=== PATIENT | female | born 1955 | race Caucasian/White ===

== ENCOUNTER 2017-04-25 19:03 | Emergency (ER) | payer MEDICAID ==
[2017-04-25] MEDS ORDERED: Nitroglycerin 2% Oint 1 GM UD Packet ONE (19:19)
[2017-04-25] MEDS ORDERED: Sodium Chloride 0.9% 2.5 ML Syringe FLUSH PRN (19:20)
[2017-04-25] MEDS ORDERED: Sodium Chloride 0.9% 10 ML Syringe FLUSH PRN (19:20)
[2017-04-25] MEDS ORDERED: Ondansetron 4 MG/2 ML SDV IVPUSH ONE (19:20)
[2017-04-25] MEDS ORDERED: Aspirin 81 MG Tab.Chew ONE (19:20)
[2017-04-25] MEDS ORDERED: Aspirin 81 MG Tab.Chew PO ONE (19:20)
[2017-04-25] MEDS ORDERED: Ketorolac 30 MG/ML SDV IVPUSH ONE (19:20)
--- NOTE | 2017-04-25 19:22 | EDM.PDOC ---
ED HPI GENERAL MEDICAL PROBLEM - General Chief Complaint: Chest Pain Stated Complaint: PAIN IN THE LEFT SIDE SHOULDER Time Seen by Provider: 04/25/17 19:13 - History of Present Illness INITIAL COMMENTS - FREE TEXT/NARRATIVE: HISTORY AND PHYSICAL: History of present illness: Patient 61-year-old female with history of hypertension and diabetes who presents with a concern of left upper back pain with radiation down her left arm and shortness of breath she's had this off and on 1 date the seemingly worse with movement she's had no palpitations diaphoresis nausea vomiting she reports no known cardiac disease she does have a strong family history Review of systems: As per history of present illness and below otherwise all systems reviewed and negative. Past medical history: As per history of present illness and as reviewed below otherwise noncontributory. Surgical history: As per history of present illness and as reviewed below otherwise noncontributory. Social history: No reported history of drug or alcohol abuse. Family history: As per history of present illness and as reviewed below otherwise noncontributory. Physical exam: HEENT: Atraumatic, normocephalic, pupils reactive, negative for conjunctival pallor or scleral icterus, mucous membranes moist, throat clear, neck supple, nontender, trachea midline. Lungs: Clear to auscultation, breath sounds equal bilaterally, pain does seem to be reproducible with movement of her left arm Heart: S1S2, regular, negative for clicks, rubs, or JVD. Abdomen: Soft, nondistended, nontender. Negative for masses or hepatosplenomegaly. Negative for costovertebral tenderness. Pelvis: Stable nontender. Genitourinary: Deferred. Rectal: Deferred. Extremities: Atraumatic, negative for cords or calf pain. Neurovascular unremarkable. Neuro: Awake, alert, oriented. Cranial nerves II through XII unremarkable. Cerebellum unremarkable. Motor and sensory unremarkable throughout. Exam nonfocal. Diagnostics: CBC CMP troponin PT/INR d-dimer chest x-ray EKG Therapeutics: IV O2 monitor aspirin 324 mg by mouth Toradol 30 mg IV Zofran 4 mg IV Impression: #1 upper back/arm pain #2 history diabetes #3 history hypertension Definitive disposition and diagnosis as appropriate pending reevaluation and review of above. - Related Data Allergies Allergy/AdvReac Type Severity Reaction Status Date / Time codeine Allergy Anaphylactic Verified 04/25/17 19:10 Shock Home Meds: Home Meds Fluticasone Propionate [Flonase] 0 gm NASBOTH DAILY 04/25/17 [History] Levothyroxine [Synthroid] 0.1 mg PO ACBREAKFAST 04/25/17 [History] Rosuvastatin [Crestor] 20 mg PO DAILY 04/25/17 [History] glyBURIDE [Glyburide] 5 mg PO DAILY 04/25/17 [History] metFORMIN [Glucophage] 1,000 mg PO BIDMEALS 04/25/17 [History] ED ROS GENERAL - Review of Systems Review Of Systems: ROS reveals no pertinent complaints other than HPI. ED EXAM, GENERAL - Physical Exam Exam: See Below (See dictation) Course - Vital Signs Text/Narrative:: I discussed with patient the unclear etiology at this time and recommend admission for observation patient understands risks and benefit and declines she does request something stronger for pain this was also explained to her son who reiterated to the patient my concerns. Patient called the private doctor Thursday she'll be prescribed Ultram to take as prescribed she to return as needed as discussed Last Recorded V/S: Last Vital Signs Temp 36.6 C 04/25/17 19:51 Pulse 76 04/25/17 20:48 Resp 16 04/25/17 20:48 BP 137/73 04/25/17 20:48 Pulse Ox 95 04/25/17 20:48 - Orders/Labs/Meds Orders: Active Orders 24 hr Category Date Time Status Cardiac Monitoring [RC] . DIRECTED Care 04/25/17 19:19 Active EKG Documentation Completion [RC] STAT Care 04/25/17 19:19 Active Oxygen Therapy, ED [RC] ASDIRECTED Care 04/25/17 19:19 Active Pulse Oximetry [RC] ASDIRECTED Care 04/25/17 19:19 Active Chest 1V Frontal [CR] Stat Exams 04/25/17 19:19 Taken Sodium Chloride 0.9% [Normal Saline] 1,000 ml Med 04/25/17 19:30 Active IV STAT Sodium Chloride 0.9% [Saline Flush] Med 04/25/17 19:20 Active 10 ml FLUSH ASDIRECTED PRN Sodium Chloride 0.9% [Saline Flush] Med 04/25/17 19:20 Active 2.5 ml FLUSH ASDIRECTED PRN Saline Lock Insert [OM.PC] Stat Oth 04/25/17 19:19 Ordered Medication Orders Sodium Chloride (Normal Saline) 1,000 mls @ 125 mls/hr IV STAT JUAN MANUEL Last Admin: 04/25/17 19:28 Dose: 125 mls/hr Sodium Chloride (Saline Flush) 10 ml FLUSH ASDIRECTED PRN PRN Reason: Keep Vein Open Sodium Chloride (Saline Flush) 2.5 ml FLUSH ASDIRECTED PRN PRN Reason: Keep Vein Open Labs: Laboratory Tests 04/25/17 04/25/17 04/25/17 Range/Units 19:15 19:15 19:15 WBC 9.17 (4.0-11.0) K/uL RBC 4.20 L (4.30-5.90) M/uL Hgb 11.8 L (12.0-16.0) g/dL Hct 35.3 L (36.0-46.0) % MCV 84.0 (80.0-98.0) fL MCH 28.1 (27.0-32.0) pg MCHC 33.4 (31.0-37.0) g/dL RDW Std Deviation 40.3 (28.0-62.0) fl RDW Coeff of Lobo 14 (11.0-15.0) % Plt Count 240 (150-400) K/uL MPV 12.20 H (7.40-12.00) fL Neut % (Auto) 61.7 (48.0-80.0) % Lymph % (Auto) 30.9 (16.0-40.0) % Cavalier % (Auto) 5.6 (0.0-15.0) % Eos % (Auto) 1.5 (0.0-7.0) % Baso % (Auto) 0.3 (0.0-1.5) % Neut # (Auto) 5.7 (1.4-5.7) K/uL Lymph # (Auto) 2.8 H (0.6-2.4) K/uL Cavalier # (Auto) 0.5 (0.0-0.8) K/uL Eos # (Auto) 0.1 (0.0-0.7) K/uL Baso # (Auto) 0.0 (0.0-0.1) K/uL Nucleated RBC % 0.0 /100WBC Nucleated RBCs # 0 K/uL INR 1.00 (0.86-1.11) D-Dimer, Quantitative (0.0-0.52) mg/LFEU Sodium 134 L (136-146) mmol/L Potassium 3.6 (3.5-5.1) mmol/L Chloride 101 (98-110) mmol/L Carbon Dioxide 21 (21-31) mmol/L BUN 17 (6.0-23.0) mg/dL Creatinine 0.9 (0.6-1.5) mg/dL Est Cr Clr Drug Dosing TNP Estimated GFR (MDRD) > 60.0 ml/min Glucose 152 H (60-110) mg/dL Calcium 8.7 L (8.8-10.8) mg/dL Total Bilirubin 0.3 (0.1-1.5) mg/dL AST 48 H (5-40) IU/L ALT 82 H (8-54) IU/L Alkaline Phosphatase 101 (40-150) Troponin I (0.0-0.29) NG/ML B-Natriuretic Peptide (<100) PG/ML Total Protein 7.5 (6.0-8.0) g/dL Albumin 3.8 (3.4-4.8) g/dL Globulin 3.7 H (2.0-3.5) g/dL Albumin/Globulin Ratio 1.0 L (1.3-2.8) 04/25/17 04/25/17 04/25/17 Range/Units 19:15 19:15 19:15 WBC (4.0-11.0) K/uL RBC (4.30-5.90) M/uL Hgb (12.0-16.0) g/dL Hct (36.0-46.0) % MCV (80.0-98.0) fL MCH (27.0-32.0) pg MCHC (31.0-37.0) g/dL RDW Std Deviation (28.0-62.0) fl RDW Coeff of Lobo (11.0-15.0) % Plt Count (150-400) K/uL MPV (7.40-12.00) fL Neut % (Auto) (48.0-80.0) % Lymph % (Auto) (16.0-40.0) % Cavalier % (Auto) (0.0-15.0) % Eos % (Auto) (0.0-7.0) % Baso % (Auto) (0.0-1.5) % Neut # (Auto) (1.4-5.7) K/uL Lymph # (Auto) (0.6-2.4) K/uL Cavalier # (Auto) (0.0-0.8) K/uL Eos # (Auto) (0.0-0.7) K/uL Baso # (Auto) (0.0-0.1) K/uL Nucleated RBC % /100WBC Nucleated RBCs # K/uL INR (0.86-1.11) D-Dimer, Quantitative 0.52 (0.0-0.52) mg/LFEU Sodium (136-146) mmol/L Potassium (3.5-5.1) mmol/L Chloride (98-110) mmol/L Carbon Dioxide (21-31) mmol/L BUN (6.0-23.0) mg/dL Creatinine (0.6-1.5) mg/dL Est Cr Clr Drug Dosing Estimated GFR (MDRD) ml/min Glucose (60-110) mg/dL Calcium (8.8-10.8) mg/dL Total Bilirubin (0.1-1.5) mg/dL AST (5-40) IU/L ALT (8-54) IU/L Alkaline Phosphatase (40-150) Troponin I < 0.10 (0.0-0.29) NG/ML B-Natriuretic Peptide 65 (<100) PG/ML Total Protein (6.0-8.0) g/dL Albumin (3.4-4.8) g/dL Globulin (2.0-3.5) g/dL Albumin/Globulin Ratio (1.3-2.8) Meds: Medications Generic Name Dose Route Start Last Admin Trade Name Freq PRN Reason Stop Dose Admin Sodium Chloride 1,000 mls @ 125 mls/hr 04/25/17 19:30 04/25/17 19:28 Normal Saline IV 125 mls/hr STAT JUAN MANUEL Administration Sodium Chloride 10 ml 04/25/17 19:20 Saline Flush FLUSH ASDIRECTED PRN Keep Vein Open Sodium Chloride 2.5 ml 04/25/17 19:20 Saline Flush FLUSH ASDIRECTED PRN Keep Vein Open Discontinued Medications Generic Name Dose Route Start Last Admin Trade Name Agustin PRN Reason Stop Dose Admin Aspirin 324 mg 04/25/17 19:20 04/25/17 19:22 Aspirin PO 04/25/17 19:21 324 mg ONETIME ONE Administration Aspirin Confirm 04/25/17 19:20 04/25/17 20:42 Aspirin Administered 04/25/17 19:21 Not Given Dose 324 mg .ROUTE .STK-MED ONE Ketorolac Tromethamine 30 mg 04/25/17 19:20 04/25/17 19:28 Toradol IVPUSH 04/25/17 19:21 30 mg ONETIME ONE Administration Nitroglycerin Confirm 04/25/17 19:19 04/25/17 19:28 Nitro-Bid 2% Administered 04/25/17 19:20 1 gm Dose Administration 1 gm .ROUTE .STK-MED ONE Nitroglycerin 1 gm 04/25/17 19:24 04/25/17 20:42 Nitro-Bid 2% TOP 04/25/17 19:25 Not Given ONETIME ONE Ondansetron HCl 4 mg 04/25/17 19:20 04/25/17 19:31 Zofran IVPUSH 04/25/17 19:21 4 mg ONETIME ONE Administration Departure - Departure Time of Disposition: 21:07 Disposition: Home, Self-Care 01 Condition: Good Clinical Impression: Upper back pain, Left arm pain, History of type 2 diabetes mellitus, History of hypertension - Discharge Information Forms: ED Department Discharge Additional Instructions: The following information is given to patients seen in the emergency department who are being discharged to home. This information is to outline your options for follow-up care. We provide all patients seen in our emergency department with a follow-up referral. The need for follow-up, as well as the timing and circumstances, are variable depending upon the specifics of your emergency department visit. If you don't have a primary care physician on staff, we will provide you with a referral. We always advise you to contact your personal physician following an emergency department visit to inform them of the circumstance of the visit and for follow-up with them and/or the need for any referrals to a consulting specialist. The emergency department will also refer you to a specialist when appropriate. This referral assures that you have the opportunity for followup care with a specialist. All of these measure are taken in an effort to provide you with optimal care, which includes your followup. Under all circumstances we always encourage you to contact your private physician who remains a resource for coordinating your care. When calling for followup care, please make the office aware that this follow-up is from your recent emergency room visit. If for any reason you are refused follow-up, please contact the [facility] emergency department at and asked to speak to the emergency department charge nurse. Ultram as prescribed continue current medications follow-up primary medical doctor Thursday as discussed return as needed as discussed - My Orders Last 24 Hours: My Active Orders 04/25/17 19:19 Cardiac Monitoring [RC] . DIRECTED EKG Documentation Completion [RC] STAT Oxygen Therapy, ED [RC] ASDIRECTED Pulse Oximetry [RC] ASDIRECTED Chest 1V Frontal [CR] Stat Saline Lock Insert [OM.PC] Stat 04/25/17 19:20 Sodium Chloride 0.9% [Saline Flush] 10 ml FLUSH ASDIRECTED PRN Sodium Chloride 0.9% [Saline Flush] 2.5 ml FLUSH ASDIRECTED PRN 04/25/17 19:30 Sodium Chloride 0.9% [Normal Saline] 1,000 ml IV STAT - Assessment/Plan Last 24 Hours: My Active Orders 04/25/17 19:19 Cardiac Monitoring [RC] . DIRECTED EKG Documentation Completion [RC] STAT Oxygen Therapy, ED [RC] ASDIRECTED Pulse Oximetry [RC] ASDIRECTED Chest 1V Frontal [CR] Stat Saline Lock Insert [OM.PC] Stat 04/25/17 19:20 Sodium Chloride 0.9% [Saline Flush] 10 ml FLUSH ASDIRECTED PRN Sodium Chloride 0.9% [Saline Flush] 2.5 ml FLUSH ASDIRECTED PRN 04/25/17 19:30 Sodium Chloride 0.9% [Normal Saline] 1,000 ml IV STAT
[2017-04-25] MEDS ORDERED: Nitroglycerin 2% Oint 1 GM UD Packet TOP ONE (19:24)
[2017-04-25] MEDS ORDERED: Sodium Chloride 0.9% 1,000 ML IV SCH (19:30)
[2017-04-25 19:54] LABS: CHLORIDE,CL 101 mmol/L (98-110); SODIUM,NA 134 mmol/L (136-146)
[2017-04-25 21:35] VITALS: BP 129/71
--- NOTE | 2017-04-27 11:36 | CR ---
EXAM DATE: 04/25/17 PATIENT'S AGE: 61 Patient: DARÍO BENNETT Facility: [place], [place] Site . Site : [id number] Study: XRay Chest [id number]/24/2017 7:44:29 PM Ordering Physician: Fortunato Lindsay Final Report: INDICATION: Chest pain, shortness of breath. TECHNIQUE: Chest radiograph 1 view COMPARISON: None FINDINGS: Cardiovascular and mediastinum: The heart silhouette is normal in size and morphology. The mediastinum is normal in appearance. Lungs and pleural spaces: Both lungs are unremarkable in appearance. No sign of pleural effusion seen. No pneumothorax is identified. Bones and soft tissues: No significant findings. IMPRESSION: 1. No acute cardiopulmonary disease is seen. Dictated by Jorge Luis Medina MD @ 04/25/2017 7:51:15 PM Dictated by: Jorge Luis Medina MD @ 04/25/2017 19:51:20 (Electronic Signature) Report Signed by Proxy. [facility] SYSTEMChristiana
== END 2017-04-25 21:17 | disposition home or self-care (01) ==
LOC: MW.ED 19:03
DX: M54.6 Pain in thoracic spine (principal); M79.602 Pain in left arm; I10 Essential (primary) hypertension; E11.9 Type 2 diabetes mellitus without complications; Z88.5 Allergy status to narcotic agent; Z79.84 Long term (current) use of oral hypoglycemic drugs; Z79.899 Other long term (current) drug therapy
CPT/HCPCS: 71010; 80053; 83880; 84484; 85025; 85379; 85610; 93005; 96361; 96374; 96375; 99285; A9270; J1885; J2405; J7040; 99284

== ENCOUNTER 2017-04-26 13:23 | Emergency (ER) | payer MEDICAID ==
--- NOTE | 2017-04-26 14:09 | EDM.PDOC ---
ED HPI GENERAL MEDICAL PROBLEM - General Chief Complaint: Upper Extremity Injury/Pain Stated Complaint: PAIN LT SHOULDER/DIZZY VOMITING Time Seen by Provider: 04/26/17 14:00 Source of Information: Reports: Patient History Limitations: Reports: No Limitations - History of Present Illness INITIAL COMMENTS - FREE TEXT/NARRATIVE: HISTORY AND PHYSICAL: History of present illness: [Patient comes the emergency room with complaints of vomiting. States that this has occurred twice, once last night and once this morning both times after taking a dose of tramadol. She was evaluated first in the ER yesterday for left shoulder pain and was prescribed tramadol. She reports a mild improvement in her shoulder discomfort and is requesting a different prescription. Pain is still localized just in her left shoulder and does not radiate anywhere. No fever chills. No abdominal pain. No other concerns or complaints. Patient speaks Romansh and granddaughter acts as back tender pulp drier.] Review of systems: As per history of present illness and below otherwise all systems reviewed and negative. Past medical history: As per history of present illness and as reviewed below otherwise noncontributory. Surgical history: As per history of present illness and as reviewed below otherwise noncontributory. Social history: No reported history of drug or alcohol abuse. Family history: As per history of present illness and as reviewed below otherwise noncontributory. Physical exam: HEENT: Atraumatic, normocephalic. Lungs: Clear to auscultation, breath sounds equal bilaterally. Heart: S1S2, regular rate and rhythm. Extremities: Tenderness over L posterior shoulder, and is reproducible. Neurovascular unremarkable. Neuro: Awake, alert, oriented. Motor and sensory unremarkable throughout. Exam nonfocal. Diagnostics: [EKG] Therapeutics: [Zofran 4mg po] Impression: [Nausea and vomiting L shoulder pain] Plan: [EKG shows no changes from previous according to Dr. Bucio who reviewed yesterday and today's EKGs. Nausea is resolved with Zofran. Instructed patient to stop tramadol, take Tylenol or ibuprofen as needed for shoulder discomfort and follow-up with PCP. Family is present at bedside and agrees with plan.] Definitive disposition and diagnosis as appropriate pending reevaluation and review of above. left shoulder/upper back Pain Score (Numeric/FACES): 3 - Related Data Allergies Allergy/AdvReac Type Severity Reaction Status Date / Time codeine Allergy Anaphylactic Verified 04/26/17 13:30 Shock Home Meds: Home Meds Fluticasone Propionate [Flonase] 0 gm NASBOTH DAILY 04/25/17 [History] Levothyroxine [Synthroid] 0.1 mg PO ACBREAKFAST 04/25/17 [History] Rosuvastatin [Crestor] 20 mg PO DAILY 04/25/17 [History] glyBURIDE [Glyburide] 5 mg PO DAILY 04/25/17 [History] metFORMIN [Glucophage] 1,000 mg PO BIDMEALS 04/25/17 [History] Hydrochlorothiazide/Lisinopril [Lisinopril-HCTZ 20-25 MG] 1 tab PO DAILY [History] Past Medical History HEENT History: Reports: None Cardiovascular History: Reports: Hypertension Respiratory History: Reports: None Gastrointestinal History: Reports: None Genitourinary History: Reports: None [employer] History: Reports: Musculoskeletal History: Reports: None Neurological History: Reports: None Psychiatric History: Reports: None Endocrine/Metabolic History: Reports: Diabetes, Type II, Hypothyroidism Hematologic History: Reports: None Oncologic (Cancer) History: Reports: None Dermatologic History: Reports: None - Infectious Disease History Infectious Disease History: Reports: None - Past Surgical History Head Surgeries/Procedures: Reports: None Social & Family History - Family History Family Medical History: Noncontributory - Tobacco Use Smoking Status *Q: Never Smoker - Caffeine Use Caffeine Use: Reports: Coffee - Recreational Drug Use Recreational Drug Use: No Review of Systems - Review of Systems Review Of Systems: ROS reveals no pertinent complaints other than HPI. ED EXAM, GENERAL - Physical Exam Exam: See Below Course - Vital Signs Last Recorded V/S: Last Vital Signs Temp 97 F 04/26/17 13:32 Pulse 75 04/26/17 16:20 Resp 18 04/26/17 16:20 BP 121/58 L 04/26/17 16:20 Pulse Ox 95 04/26/17 16:20 - Orders/Labs/Meds Orders: Active Orders 24 hr Category Date Time Status EKG Documentation Completion [RC] STAT Care 04/26/17 14:29 Active Meds: Medications Discontinued Medications Generic Name Dose Route Start Last Admin Trade Name Freq PRN Reason Stop Dose Admin Ondansetron HCl 4 mg 04/26/17 14:29 04/26/17 14:33 Zofran Odt PO 04/26/17 14:30 4 mg ONETIME ONE Administration Departure - Departure Time of Disposition: 16:00 Disposition: Home, Self-Care 01 Condition: Good Clinical Impression: Nausea - Discharge Information Instructions: Nausea, Adult Referrals: PCP,None [Primary Care Provider] - Forms: ED Department Discharge Additional Instructions: The following information is given to patients seen in the emergency department who are being discharged to home. This information is to outline your options for follow-up care. We provide all patients seen in our emergency department with a follow-up referral. The need for follow-up, as well as the timing and circumstances, are variable depending upon the specifics of your emergency department visit. If you don't have a primary care physician on staff, we will provide you with a referral. We always advise you to contact your personal physician following an emergency department visit to inform them of the circumstance of the visit and for follow-up with them and/or the need for any referrals to a consulting specialist. The emergency department will also refer you to a specialist when appropriate. This referral assures that you have the opportunity for follow-up care with a specialist. All of these measure are taken in an effort to provide you with optimal care, which includes your follow-up. Under all circumstances we always encourage you to contact your private physician who remains a resource for coordinating your care. When calling for follow-up care, please make the office aware that this follow-up is from your recent emergency room visit. If for any reason you are refused follow-up, please contact the [facility] emergency department at and asked to speak to the emergency department charge nurse. [facility] [address] [place] [id number] Follow-up with your primary care provider at the clinic listed above in 24-48 hours. Take Tylenol and ibuprofen as needed for discomfort. Stop tramadol. Return to ER as needed as discussed. - My Orders Last 24 Hours: My Active Orders 04/26/17 14:29 EKG Documentation Completion [RC] STAT - Assessment/Plan Last 24 Hours: My Active Orders 04/26/17 14:29 EKG Documentation Completion [RC] STAT
[2017-04-26] MEDS ORDERED: Ondansetron 4 MG Tab.DIS PO ONE (14:29)
[2017-04-26 16:21] VITALS: BP 121/58
== END 2017-04-26 16:15 | disposition home or self-care (01) ==
LOC: MW.ED 13:23
DX: M25.512 Pain in left shoulder (principal); R11.2 Nausea with vomiting, unspecified; I10 Essential (primary) hypertension; E11.9 Type 2 diabetes mellitus without complications; E03.9 Hypothyroidism, unspecified; Z88.5 Allergy status to narcotic agent; Z79.84 Long term (current) use of oral hypoglycemic drugs; Z79.899 Other long term (current) drug therapy
CPT/HCPCS: 93005; 99283; A9270

== ENCOUNTER 2017-05-14 08:47 | Emergency (ER) | payer MEDICAID ==
[2017-05-14] MEDS ORDERED: diphenhydrAMINE 50 MG Cap PO ONE (09:16)
[2017-05-14] MEDS ORDERED: Acetaminophen 325 MG Tab PO ONE (09:16)
--- NOTE | 2017-05-14 09:21 | EDM.PDOC ---
ED HPI GENERAL MEDICAL PROBLEM - General Chief Complaint: Cardiovascular Problem Stated Complaint: BLOOD PRESSURE Time Seen by Provider: 05/14/17 09:00 - History of Present Illness INITIAL COMMENTS - FREE TEXT/NARRATIVE: HISTORY AND PHYSICAL: History of present illness: The patient is a 61-year-old female with a history of hypertension type 2 diabetes hypercholesterolemia hypothyroidism who follows at [facility] with and last saw her on May 09 for some sciatic pain for which she was prescribed diclofenac and Flexeril; the patient presents today complaining of feeling like her blood pressure is elevated and a temporal headache as well as overall feeling not quite herself after taking a pain pill she got in [place]. According to the patient and the son at bedside the patient felt that the medication that she was given last week was not working for her sciatica so she took a pain pill that she bought in [place] one month ago that is some type of pain pill but they are not sure what it is. After taking the pain pill she started feeling like her blood pressure was elevated she had the temporal headache and just felt unlike herself. She was not dizzy or lightheaded had no nausea or vomiting no chest pain but did feel short of breath. Currently in the ED the patient says that she has no symptoms except the temporal headache which is dull. Patient denies any leg edema or leg pain and the sciatic pain that she has on the right side is not new different or changed. She has not had any recent changes in her medications. The patient seems a little concerned that the medication that she took from [place] may have caused her to have a reaction. Review of systems: As per history of present illness and below otherwise all systems reviewed and negative. Past medical history: As per history of present illness and as reviewed below otherwise noncontributory. Surgical history: As per history of present illness and as reviewed below otherwise noncontributory. Social history: No reported history of drug or alcohol abuse. Family history: As per history of present illness and as reviewed below otherwise noncontributory. Physical exam: General: Well-developed well-nourished female who is nontoxic and speaking clearly and easily in the ED. Vital signs are note by me. HEENT: Atraumatic, normocephalic, pupils reactive, negative for conjunctival pallor or scleral icterus, mucous membranes moist, throat clear, neck supple, nontender, trachea midline.There is no facial swelling or discrete sinus or temporal artery tenderness. There is no cervical adenopathy or nuchal rigidity Lungs: Clear to auscultation, breath sounds equal bilaterally, chest nontender. Heart: S1S2, regular rhythm and slightly tachycardic rate on my evaluation, 100 Abdomen: Soft, nondistended, nontender. NABS Genitourinary: Deferred. Rectal: Deferred. Extremities: Atraumatic, negative for cords or calf pain. Neurovascular unremarkable.No pedal edema or leg asymmetry Neuro: Awake, alert, oriented. Cranial nerves II through XII unremarkable. Cerebellum unremarkable. Motor and sensory unremarkable throughout. Exam nonfocal. Diagnostics: Accu-Chek Therapeutics: Tylenol Benadryl I discussed with the patient and the son that if she is currently only having symptoms of a dull headache I am not sure that testing would yield anything of significance that I could treat. Her blood pressure of 179/85 is noted by me and I discussed with them that I would not acutely or emergently change that I recommended close follow-up with primary care physician at [facility] and to refrain from using this medication for pain that she got from [place]. I discussed reasons to return to the ED. Impression: Slightly elevated blood pressure with history of hypertension stable rule out drug reaction Definitive disposition and diagnosis as appropriate pending reevaluation and review of above. head Pain Score (Numeric/FACES): 5 - Related Data Allergies Allergy/AdvReac Type Severity Reaction Status Date / Time codeine Allergy Anaphylactic Verified 05/14/17 08:57 Shock Home Meds: Home Meds Cyclobenzaprine [Flexeril] 10 mg PO TID PRN 05/14/17 [History] Diclofenac Potassium [Zipsor] 25 mg PO TID PRN 05/14/17 [History] Levothyroxine [Synthroid] 100 mcg PO ACBREAKFAST 05/14/17 [History] Lisinopril/Hydrochlorothiazide [Lisinopril-Hctz 20-25 mg Tab] 1 each PO DAILY [History] glyBURIDE [Glyburide] 5 mg PO DAILY 05/14/17 [History] metFORMIN HCl [Metformin HCl] 1,000 mg PO DAILY 05/14/17 [History] Past Medical History HEENT History: Reports: None Cardiovascular History: Reports: Hypertension Respiratory History: Reports: None Gastrointestinal History: Reports: None Genitourinary History: Reports: None [employer]PERATOR History: Reports: Musculoskeletal History: Reports: None Neurological History: Reports: None Psychiatric History: Reports: None Endocrine/Metabolic History: Reports: Diabetes, Type II, Hypothyroidism Hematologic History: Reports: None Oncologic (Cancer) History: Reports: None Dermatologic History: Reports: None - Infectious Disease History Infectious Disease History: Reports: None - Past Surgical History Head Surgeries/Procedures: Reports: None Social & Family History - Family History Family Medical History: Noncontributory - Tobacco Use Smoking Status *Q: Never Smoker - Caffeine Use Caffeine Use: Reports: Coffee - Recreational Drug Use Recreational Drug Use: Yes ED ROS GENERAL - Review of Systems Review Of Systems: ROS reveals no pertinent complaints other than HPI. ED EXAM, GENERAL - Physical Exam Exam: See Below (See dictation) Course - Vital Signs Last Recorded V/S: Last Vital Signs Temp 36.4 C 05/14/17 08:57 Pulse 108 H 05/14/17 08:57 Resp 18 05/14/17 08:57 BP 179/85 H 05/14/17 08:57 Pulse Ox 97 05/14/17 08:57 - Orders/Labs/Meds Orders: Active Orders 24 hr Category Date Time Status Acetaminophen [Tylenol] Med 05/14/17 09:16 Once 650 mg PO NOW ONE diphenhydrAMINE [Benadryl] Med 05/14/17 09:16 Once 50 mg PO ONETIME ONE Departure - Departure Time of Disposition: 09:21 Disposition: Home, Self-Care 01 Condition: Good Clinical Impression: Elevated blood pressure reading Drug reaction Qualifiers: Encounter type: initial encounter Qualified Code(s): T88.7XXA - Unspecified adverse effect of drug or medicament, initial encounter Forms: ED Department Discharge Additional Instructions: The following information is given to patients seen in the emergency department who are being discharged to home. This information is to outline your options for follow-up care. We provide all patients seen in our emergency department with a follow-up referral. The need for follow-up, as well as the timing and circumstances, are variable depending upon the specifics of your emergency department visit. If you don't have a primary care physician on staff, we will provide you with a referral. We always advise you to contact your personal physician following an emergency department visit to inform them of the circumstance of the visit and for follow-up with them and/or the need for any referrals to a consulting specialist. The emergency department will also refer you to a specialist when appropriate. This referral assures that you have the opportunity for followup care with a specialist. All of these measure are taken in an effort to provide you with optimal care, which includes your followup. Under all circumstances we always encourage you to contact your private physician who remains a resource for coordinating your care. When calling for followup care, please make the office aware that this follow-up is from your recent emergency room visit. If for any reason you are refused follow-up, please contact the [facility] emergency department at and ask to speak to the emergency department charge nurse. [address] [place] [address] Please refrain from using the medications you brought in [place] and please call and follow-up with your provider at [facility]. Use [id number] Tylenol or ibuprofen for headache and return to ER as needed and as discussed - My Orders Last 24 Hours: My Active Orders 05/14/17 09:16 Acetaminophen [Tylenol] 650 mg PO NOW ONE diphenhydrAMINE [Benadryl] 50 mg PO ONETIME ONE - Assessment/Plan Last 24 Hours: My Active Orders 05/14/17 09:16 Acetaminophen [Tylenol] 650 mg PO NOW ONE diphenhydrAMINE [Benadryl] 50 mg PO ONETIME ONE
[2017-05-14 09:44] VITALS: BP 161/75
== END 2017-05-14 09:35 | disposition home or self-care (01) ==
LOC: MW.ED 08:47
DX: I10 Essential (primary) hypertension (principal); E11.9 Type 2 diabetes mellitus without complications; E78.00 Pure hypercholesterolemia, unspecified; E03.9 Hypothyroidism, unspecified; Z79.84 Long term (current) use of oral hypoglycemic drugs; Z88.5 Allergy status to narcotic agent; Z79.899 Other long term (current) drug therapy
CPT/HCPCS: 82962; 99283; A9270

== ENCOUNTER 2017-12-19 20:26 | Emergency (ER) | payer MEDICAID ==
--- NOTE | 2017-12-19 20:47 | EDM.PDOC ---
ED HPI GENERAL MEDICAL PROBLEM - General Stated Complaint: WEAK/EAR PAIN/TROUBLE BREATHING/CHILLS Time Seen by Provider: 12/19/17 20:44 - History of Present Illness INITIAL COMMENTS - FREE TEXT/NARRATIVE: HISTORY AND PHYSICAL: History of present illness: Patient 62-year-old female presents with a concern of fever chills body aches 1 day after admit exposed to multiple family members diagnosed with influenza. No vomiting diarrhea or other complaints. Review of systems: As per history of present illness and below otherwise all systems reviewed and negative. Past medical history: As per history of present illness and as reviewed below otherwise noncontributory. Surgical history: As per history of present illness and as reviewed below otherwise noncontributory. Social history: No reported history of drug or alcohol abuse. Family history: As per history of present illness and as reviewed below otherwise noncontributory. Physical exam: HEENT: Atraumatic, normocephalic, pupils reactive, negative for conjunctival pallor or scleral icterus, mucous membranes moist, throat clear, neck supple, nontender, trachea midline. Lungs: Clear to auscultation, breath sounds equal bilaterally, chest nontender. Heart: S1S2, regular, negative for clicks, rubs, or JVD. Abdomen: Soft, nondistended, nontender. Negative for masses or hepatosplenomegaly. Negative for costovertebral tenderness. Pelvis: Stable nontender. Genitourinary: Deferred. Rectal: Deferred. Extremities: Atraumatic, negative for cords or calf pain. Neurovascular unremarkable. Neuro: Awake, alert, oriented. Cranial nerves II through XII unremarkable. Cerebellum unremarkable. Motor and sensory unremarkable throughout. Exam nonfocal. Diagnostics: Deferred Therapeutics: None Impression: #1 viral syndrome status post influenza exposure Definitive disposition and diagnosis as appropriate pending reevaluation and review of above. - Related Data Allergies Allergy/AdvReac Type Severity Reaction Status Date / Time codeine Allergy Anaphylactic Verified 05/14/17 08:57 Shock Home Meds: Home Meds Cyclobenzaprine [Flexeril] 10 mg PO TID PRN 05/14/17 [History] Diclofenac Potassium [Zipsor] 25 mg PO TID PRN 05/14/17 [History] Levothyroxine [Synthroid] 100 mcg PO ACBREAKFAST 05/14/17 [History] Lisinopril/Hydrochlorothiazide [Lisinopril-Hctz 20-25 mg Tab] 1 each PO DAILY [History] glyBURIDE [Glyburide] 5 mg PO DAILY 05/14/17 [History] metFORMIN HCl [Metformin HCl] 1,000 mg PO DAILY 05/14/17 [History] Past Medical History HEENT History: Reports: None Cardiovascular History: Reports: Hypertension Respiratory History: Reports: None Gastrointestinal History: Reports: None Genitourinary History: Reports: None [employer]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: Musculoskeletal History: Reports: None Neurological History: Reports: None Psychiatric History: Reports: None Endocrine/Metabolic History: Reports: Diabetes, Type II, Hypothyroidism Hematologic History: Reports: None Oncologic (Cancer) History: Reports: None Dermatologic History: Reports: None - Infectious Disease History Infectious Disease History: Reports: None - Past Surgical History Head Surgeries/Procedures: Reports: None Social & Family History - Family History Family Medical History: Noncontributory - Tobacco Use Smoking Status *Q: Never Smoker - Caffeine Use Caffeine Use: Reports: Coffee - Recreational Drug Use Recreational Drug Use: Yes ED ROS GENERAL - Review of Systems Review Of Systems: ROS reveals no pertinent complaints other than HPI. ED EXAM, GENERAL - Physical Exam Exam: See Below (The dictation) Course - Vital Signs Text/Narrative:: Discussed with patient and daughter diagnostic testing at this time they defer prefer empiric treatment in light of clinical statement and exposure. Departure - Departure Time of Disposition: 20:46 Disposition: Home, Self-Care 01 Condition: Good Clinical Impression: Viral syndrome, Exposure to influenza - Discharge Information Referrals: PCP,None [Primary Care Provider] - Additional Instructions: The following information is given to patients seen in the emergency department who are being discharged to home. This information is to outline your options for follow-up care. We provide all patients seen in our emergency department with a follow-up referral. The need for follow-up, as well as the timing and circumstances, are variable depending upon the specifics of your emergency department visit. If you don't have a primary care physician on staff, we will provide you with a referral. We always advise you to contact your personal physician following an emergency department visit to inform them of the circumstance of the visit and for follow-up with them and/or the need for any referrals to a consulting specialist. The emergency department will also refer you to a specialist when appropriate. This referral assures that you have the opportunity for followup care with a specialist. All of these measure are taken in an effort to provide you with optimal care, which includes your followup. Under all circumstances we always encourage you to contact your private physician who remains a resource for coordinating your care. When calling for followup care, please make the office aware that this follow-up is from your recent emergency room visit. If for any reason you are refused follow-up, please contact the [facility] emergency department at and asked to speak to the emergency department charge nurse. Tamiflu as prescribed push fluids Motrin/Tylenol as directed follow-up private medical doctor as needed as discussed and return as needed as discussed
[2017-12-19 20:48] VITALS: BP 168/77
== END 2017-12-19 20:55 | disposition home or self-care (01) ==
LOC: MW.ED 20:26
DX: B34.9 Viral infection, unspecified (principal); I10 Essential (primary) hypertension; E11.9 Type 2 diabetes mellitus without complications; E03.9 Hypothyroidism, unspecified; Z79.84 Long term (current) use of oral hypoglycemic drugs; Z79.899 Other long term (current) drug therapy; Z88.5 Allergy status to narcotic agent
CPT/HCPCS: 99282; 99283